=== PATIENT | male | born 2005 | race African-American/Black ===

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

== ENCOUNTER → 2024-03-17 | Outpatient (REF) | payer BC ==
[~2024-03-17] MED LIST: AMOX875T2 PO
[2024-03-18 15:20] LABS: Trichomonas vaginalis (AMP) NOT DETECTED (NEGATIVE)
[2024-03-18 15:43] LABS: GC DNA AMPLIFICATION NEGATIVE (NEGATIVE)
== END ==
LOC: M LAB REF 13:09
PROVIDERS: ATTEND Physician Assistant
DX: Z20.2 Contact with and (suspected) exposure to infections with a predominantly sexual mode of transmission (principal)

== ENCOUNTER 2025-04-29 07:44 | Emergency (ER) | payer BC, SELFPAY ==
[~2025-04-29] VITALS: Ht 172.7 cm; Wt 50.1 kg
[2025-04-29 07:52] VITALS: TEMP 99.1
[2025-04-29] MEDS: NS (Normal Saline) 0.9% 1,000 ML IV ONE (08:38)
[2025-04-29 08:52] LABS: BASO # 0.0 10^3/uL (0.0-0.2); BASO % 0.3 % (0.0-1.0); EOS # 0.0 10^3/uL (0.0-0.5); EOS % 0.0 % (0.0-3.0); LYMPH # 0.9 10^3/uL (1.5-5.0); LYMPH % 9.5 % (24.0-44.0); MONO # 0.7 10^3/uL (0.0-0.8); MONO % 7.1 % (2.0-8.0); NEUTROPHILS # 7.6 10^3/uL (1.5-8.5); NEUTROPHILS % 82.8 % (36.0-66.0); PLATELET COUNT, AUTOMATED 282 10^3/uL (150-450)
[2025-04-29 09:13] LABS: ETHYL ALCOHOL (ETHANOL) < 0.003 % (0.000-0.010)
[2025-04-29 09:14] LABS: SALICYLATE LEVEL < 3.0 MG/DL (<30)
[2025-04-29 09:15] LABS: ALT/SGPT 559 U/L (7.0-40); AST/SGOT 644 U/L (<34); CALCIUM LEVEL 9.7 MG/DL (8.5-10.1); CARBON DIOXIDE LEVEL 30 MMOL/L (20-31); CHLORIDE LEVEL 99 MMOL/L (98-107); CREATININE FOR GFR 0.87 MG/DL (0.70-1.30); GLOMERULAR FILTRATION RATE > 90.0 (>60); MAGNESIUM LEVEL 2.0 MG/DL (1.8-2.4); POTASSIUM SERUM 3.8 MMOL/L (3.5-5.1); SODIUM LEVEL 138 MMOL/L (136-145)
[2025-04-29 10:13] LABS: AMPHETAMINES LEVEL URINE NEGATIVE (NEGATIVE); BARBITURATES URINE NEGATIVE (NEGATIVE)
[2025-04-29 10:14] LABS: METHADONE URINE NEGATIVE (NEGATIVE); PHENCYCLIDINE URINE NEGATIVE (NEGATIVE)
[2025-04-29 10:15] LABS: BENZODIAZEPINES URINE POSITIVE (NEGATIVE); CANNABINOIDS URINE POSITIVE (NEGATIVE); COCAINE METABOLITE URINE POSITIVE (NEGATIVE); OPIATES URINE POSITIVE (NEGATIVE)
[2025-04-29 10:19] LABS: HEPATITIS C VIRUS ABY INDEX < 0.02 INDEX (<0.8)
[2025-04-29 14:30] VITALS: BP 137/79; O2SAT 100
== END 2025-04-29 15:00 | disposition home or self-care (01) ==
LOC: MERGE 07:44 → EDBD 07:44 → M ED 07:44
DX: F19.10 Other psychoactive substance abuse, uncomplicated (principal); F17.200 Nicotine dependence, unspecified, uncomplicated

== ENCOUNTER 2025-05-23 23:55 | Emergency (ER) | payer BC, SELFPAY ==
[~2025-05-23] VITALS: Ht 170.2 cm; Wt 51.0 kg
[2025-05-24 02:06] VITALS: BP 145/89; TEMP 98.6; O2SAT 100
[2025-05-24] MEDS ORDERED: IBUP-1022 PO (10:02)
== END 2025-05-24 03:18 | disposition left against medical advice (07) ==
LOC: M ED 23:55
DX: Z53.21 Procedure and treatment not carried out due to patient leaving prior to being seen by health care provider (principal)

== ENCOUNTER 2025-05-24 08:26 | Emergency (ER) | payer OTHER, SELFPAY ==
[~2025-05-24] VITALS: Ht 170.2 cm; Wt 50.5 kg
[2025-05-24] MEDS ORDERED: IBUP-1022 PO (10:02)
[2025-05-24] MEDS: KETOROLAC 60 MG/2 ML VIAL IM ONE (10:09)
[2025-05-24 10:13] VITALS: BP 152/78; TEMP 98.8; O2SAT 100
== END 2025-05-24 10:22 | disposition home or self-care (01) ==
LOC: M ED 08:26
DX: S20.212A Contusion of left front wall of thorax, initial encounter (principal); S20.224A Contusion of middle back wall of thorax, initial encounter; S30.0XXA Contusion of lower back and pelvis, initial encounter; S70.11XA Contusion of right thigh, initial encounter; S70.12XA Contusion of left thigh, initial encounter; S06.0XAA Concussion with loss of consciousness status unknown, initial encounter; Y04.8XXA Assault by other bodily force, initial encounter; Y92.410 Unspecified street and highway as the place of occurrence of the external cause; Y93.9 Activity, unspecified; Y99.9 Unspecified external cause status; F17.200 Nicotine dependence, unspecified, uncomplicated
CPT/HCPCS: 70450; 71250; 72125; 72128; 72131; 73552; 74176; 96372; 99284; J1885